=== PATIENT | male | born 2000 | race Caucasian/White ===

== ENCOUNTER 2025-03-18 12:13 | Emergency (ER) | payer BC ==
[2025-03-18] MEDS ORDERED: Ibuprofen 200 MG TAB ONE (12:59)
== END 2025-03-18 14:00 | disposition home or self-care (01) ==
LOC: CSHERS 12:13
DX: S93.401A Sprain of unspecified ligament of right ankle, initial encounter (principal); S93.601A Unspecified sprain of right foot, initial encounter; X50.1XXA Overexertion from prolonged static or awkward postures, initial encounter
CPT/HCPCS: 99283